=== PATIENT | female | born 1995 | race Two or more races ===

== ENCOUNTER → 2022-08-15 | Outpatient (CLI) | payer OTHER | LOC: M WHC 10:08 | PROVIDERS: ATTEND Obstetrics & Gynecology | DX: Z34.82 Encounter for supervision of other normal pregnancy, second trimester (principal); Z3A.20 20 weeks gestation of pregnancy ==

== ENCOUNTER 2022-09-03 18:57 | Outpatient (CLI) | payer OTHER ==
[~2022-09-03] VITALS: Ht 154.9 cm; Wt 49.3 kg
[2022-09-03 19:14] VITALS: BP 124/71
[2022-09-03] MEDS ORDERED: PRENMIS3 PO (19:15)
[2022-09-03] MEDS ORDERED: TUMS500C PO (19:15)
[2022-09-03 19:46] LABS: HEMATOCRIT 31.2 % (36.0-47.0); HEMOGLOBIN 10.3 g/dl (12.0-15.5); MEAN CORPUSCULAR HEMOGLOBIN 29.6 pg (27.0-33.0); MEAN CORPUSCULAR VOLUME 89.7 fl (80.0-96.0); PLATELET COUNT, AUTOMATED 298 10^3/uL (150-450); RED BLOOD COUNT 3.48 10^6/uL (4.00-5.40); WHITE BLOOD COUNT 10.4 10^3/uL (4.0-10.0)
[2022-09-03 20:15] LABS: INR 0.94; PROTHROMBIN TIME 12.8 SECONDS (12.5-14.5)
[2022-09-03 20:16] LABS: PARTIAL THROMBOPLASTIN TIME 25.9 SECONDS (24.8-34.2)
[2022-09-03] MEDS ORDERED: FLUCONAZOLE 50MG TABLET PO ONE (21:00)
[2022-09-03 21:13] VITALS: BP 117/58
[2022-09-03 22:49] LABS: GC DNA AMPLIFICATION NEGATIVE (NEGATIVE)
== END 2022-09-03 21:39 | disposition home or self-care (01) ==
LOC: M LDO 18:57
PROVIDERS: ATTEND Obstetrics & Gynecology
DX: O23.592 Infection of other part of genital tract in pregnancy, second trimester (principal); Z3A.23 23 weeks gestation of pregnancy; O26.892 Other specified pregnancy related conditions, second trimester; R10.2 Pelvic and perineal pain
CPT/HCPCS: 36415; 59025; 76815; 81001; 85027; 85384; 85610; 85730; 87810; 87850; G0463

== ENCOUNTER 2022-12-07 14:02 | Outpatient (CLI) | payer OTHER ==
[~2022-12-07 14:02] MED LIST: PRENMIS3 PO; TUMS500C PO
== END 2022-12-07 17:30 | disposition home or self-care (01) ==
LOC: M LDO 14:02
PROVIDERS: ATTEND Obstetrics & Gynecology
DX: O46.93 Antepartum hemorrhage, unspecified, third trimester (principal); Z3A.36 36 weeks gestation of pregnancy; O36.5930 Maternal care for other known or suspected poor fetal growth, third trimester, not applicable or unspecified; Z65.3 Problems related to other legal circumstances
CPT/HCPCS: 59025; 76816; 76820; G0463

== ENCOUNTER 2022-12-14 13:01 | Inpatient (IN) | payer OTHER ==
[~2022-12-14] VITALS: Ht 157.5 cm; Wt 53.1 kg
[2022-12-14] VITALS (28 sets, daily range): BP systolic 124–187; BP diastolic 65–112
[2022-12-14] MEDS ORDERED: HOME MED LIST COMPLETE! XX SCH (13:45)
[2022-12-14] MEDS ORDERED: LIDOCAINE 1% MDV 20ML VIAL INFIL PRN (14:15)
[2022-12-14] MEDS ORDERED: TRANEXAMIC ACID INJection 1,000 MG in NS 100 ML IV PRN (14:15)
[2022-12-14] MEDS ORDERED: CARBOPROST TROMETHAMINE 250 MCG/ML AMP IM PRN (14:15)
[2022-12-14] MEDS ORDERED: OXYTOCIN DRIP 30 UNITS in IV 1 EA IV PRN ×4 (14:15)
[2022-12-14] MEDS ORDERED: LR 1,000 ML IV SCH (14:15)
[2022-12-14] MEDS ORDERED: LACTATED RINGER'S 1000 ML IV STA (14:15)
[2022-12-14 15:05] LABS: HEMATOCRIT 31.2 % (36.0-47.0); HEMOGLOBIN 10.1 g/dl (12.0-15.5); MEAN CORPUSCULAR HEMOGLOBIN 26.8 pg (27.0-33.0); MEAN CORPUSCULAR HGB CONC 32.4 g/dl (32.0-36.5); MEAN CORPUSCULAR VOLUME 82.8 fl (80.0-96.0); PLATELET COUNT, AUTOMATED 240 10^3/uL (150-450); RED BLOOD COUNT 3.77 10^6/uL (4.00-5.40); WHITE BLOOD COUNT 11.3 10^3/uL (4.0-10.0)
[2022-12-14] MEDS ORDERED: miSOPROStol 50MCG 1/2 TABLET SL ONE (15:15)
[2022-12-14 15:36] LABS: AMPHETAMINES URINE REFLEX NEGATIVE (NEGATIVE); BARBITURATES URINE REFLEX NEGATIVE (NEGATIVE); BENZODIAZEPINES URINE REFLEX NEGATIVE (NEGATIVE); COCAINE METABOLITE URINE REFLE NEGATIVE (NEGATIVE); METHADONE URINE REFLEX NEGATIVE (NEGATIVE); OPIATES URINE REFLEX NEGATIVE (NEGATIVE); PHENCYCLIDINE URINE REFLEX NEGATIVE (NEGATIVE)
[2022-12-14 15:37] LABS: LDH LACTATE DEHYDROGENASE 232 U/L (120-246)
[2022-12-14 15:38] LABS: ALT/SGPT 14 U/L (7.0-40); AST/SGOT 23 U/L (<34); BILIRUBIN,TOTAL 0.5 MG/DL (0.3-1.2); CREATININE FOR GFR 0.67 MG/DL (0.55-1.30); GLOMERULAR FILTRATION RATE > 60.0 (>60)
[2022-12-14 16:56] LABS: CANNABINOIDS URINE REFLEX PENDING CONFIRMATION (NEGATIVE)
[2022-12-14] MEDS ORDERED: miSOPROStol 50MCG 1/2 TABLET PO SCH (18:55)
[2022-12-14] MEDS ORDERED: diphenhydrAMINE 50MG/ML VIAL IV PRN (21:40)
[2022-12-14] MEDS ORDERED: ePHEDrine SULFATE 25 MG/5 ML(5MG/ML) SYRINGE IVP PRN (21:40)
[2022-12-14] MEDS ORDERED: FENTANYL/ROPIVACAINE/NACL BAG 100 ML EPIDURAL SCH ×2 (21:40)
[2022-12-14] MEDS ORDERED: NALOXONE INJ 0.4MG/1ML VIAL IV PRN (21:40)
[2022-12-14] MEDS ORDERED: EPIDURAL/PCA KEYS XX PRN (21:40)
[2022-12-14] MEDS ORDERED: FENTANYL 2MCG/ML ROPIVACAINE 0.2% IN 0.9% NACL 100ML IVBAG As Ordered ONE (21:44)
[2022-12-14] MEDS: ONDANSETRON 4MG 2ML VIAL IV PRN (23:53)
[2022-12-15] VITALS (45 sets, daily range): BP systolic 107–183; BP diastolic 58–113; TEMP 98.1–98.4; O2SAT 100
[2022-12-15 02:32] LABS: CORD GAS ABE A -10.1; CORD GAS ABE V -9.9; CORD GAS HCO3 A 17.8 MMOL/L; CORD GAS HCO3 V 18.3 MMOL/L; CORD GAS O2 SAT A 69.6 %; CORD GAS O2 SAT V 41.6 %; CORD GAS PCO2 A 46.1 mmHg; CORD GAS PCO2 V 48.5 mmHg; CORD GAS PH A 7.205 UNITS; CORD GAS PH V 7.195 UNITS; CORD GAS PO2 A 32.7 mmHg; CORD GAS PO2 V 21.5 mmHg; CORD GAS SBC A 16.1 MMOL/L; CORD GAS SBC V 15.5 MMOL/L; CORD GAS TCO2 A 19.2 MMOL/L; CORD GAS TCO2 V 19.8 MMOL/L
[2022-12-15] MEDS ORDERED: DIBUCAINE 1% OINTMENT 30GM TOP PRN (02:40)
[2022-12-15] MEDS ORDERED: MOM 30ML SUSPENSION UDC PO PRN (02:40)
[2022-12-15] MEDS ORDERED: DOCUSATE SODIUM 100MG CAPSULE PO PRN (02:40)
[2022-12-15] MEDS ORDERED: ANUSOL HC CREAM 30GM TOP PRN (02:40)
[2022-12-15 03:27] LABS: BASO % 0.1 % (0.0-1.0); EOS # 0.1 10^3/uL (0.0-0.5); EOS % 0.8 % (0.0-3.0); HEMATOCRIT 29.6 % (36.0-47.0); HEMOGLOBIN 9.8 g/dl (12.0-15.5); LYMPH # 2.2 10^3/uL (1.5-5.0); LYMPH % 16.6 % (24.0-44.0); MEAN CORPUSCULAR HEMOGLOBIN 27.1 pg (27.0-33.0); MEAN CORPUSCULAR HGB CONC 33.1 g/dl (32.0-36.5); MEAN CORPUSCULAR VOLUME 81.8 fl (80.0-96.0); MONO # 0.9 10^3/uL (0.0-0.8); MONO % 6.3 % (2.0-8.0); NEUTROPHILS # 10.2 10^3/uL (1.5-8.5); NEUTROPHILS % 75.6 % (36.0-66.0); PLATELET COUNT, AUTOMATED 230 10^3/uL (150-450); RED BLOOD COUNT 3.62 10^6/uL (4.00-5.40); WHITE BLOOD COUNT 13.5 10^3/uL (4.0-10.0)
[2022-12-15 03:50] LABS: TOTAL PROTEIN,RANDOM URINE 33.2 MG/DL (0.0-14.0)
[2022-12-15 03:55] LABS: CREATININE,RANDOM URINE 26.7 MG/DL
[2022-12-15 03:56] LABS: ALBUMIN 2.4 G/DL (3.2-5.2); ALKALINE PHOSPHATASE 188 U/L (46-116); ALT/SGPT 13 U/L (7.0-40); AST/SGOT 23 U/L (<34); BILIRUBIN,TOTAL 0.4 MG/DL (0.3-1.2); BLOOD UREA NITROGEN 6 MG/DL (9-23); CARBON DIOXIDE LEVEL 19 MMOL/L (20-31); CHLORIDE LEVEL 110 MMOL/L (98-107); CREATININE FOR GFR 0.63 MG/DL (0.55-1.30); GLOMERULAR FILTRATION RATE > 60.0 (>60); GLUCOSE, FASTING 77 MG/DL (60-100); SODIUM LEVEL 136 MMOL/L (136-145); TOTAL PROTEIN 5.1 G/DL (5.7-8.2)
[2022-12-15] MEDS: ACETAMINOPHEN 500 MG TAB PO PRN (04:21)
[2022-12-15] MEDS: PRENATAL VITAMINS CHEWABLE TABLET PO SCH (10:04)
[2022-12-15] MEDS: IBUPROFEN 800 MG TAB PO PRN ×2 (11:52→18:59)
[2022-12-15] MEDS ORDERED: CALCIUM GLUCONATE 1,000 MG in D5W MINI-BAG PLUS 100 ML IV PRN (14:30)
[2022-12-15] MEDS ORDERED: LR 1,000 ML IV SCH (14:30)
[2022-12-15] MEDS ORDERED: NIFEdipine 10 MG CAP PO ONE (14:45)
[2022-12-15] MEDS: LABETALOL 200 MG TAB PO SCH ×2 (14:55→21:37)
[2022-12-15] MEDS ORDERED: MAG Sulf (L&D) 4 GM/100 ML 4 GM in IV 1 EA IV ONE (15:00)
[2022-12-15] MEDS ORDERED: MAG Sulf (OBGYN) 20GM/500ML 20,000 MG in IV 1 EA IV SCH (15:30)
[2022-12-16] VITALS (16 sets, daily range): BP systolic 116–172; BP diastolic 50–100; TEMP 98.3; O2SAT 98–100
[2022-12-16] MEDS: IBUPROFEN 800 MG TAB PO PRN (04:01)
[2022-12-16] MEDS: PRENATAL VITAMINS CHEWABLE TABLET PO SCH (08:53)
[2022-12-16] MEDS: LABETALOL 200 MG TAB PO SCH ×2 (08:54→18:20)
[2022-12-16] MEDS ORDERED: BOOSTRIX VACCINE (TETANUS/DIPHTH/ACEL. PERTUSSIS) 0.5ML SYR IM.IMMUN ONE (09:00)
[2022-12-16] MEDS: ACETAMINOPHEN 500 MG TAB PO PRN ×2 (09:37→22:00)
[2022-12-16] MEDS ORDERED: SLF 3 ML SYR IV PRN (09:50)
[2022-12-16] MEDS ORDERED: KETOROLAC 30 MG/ML 1ML VIAL IV SCH (10:00)
[2022-12-16] MEDS: KETOROLAC 30 MG/ML 1ML VIAL IV SCH ×2 (13:13→18:19)
[2022-12-16] MEDS: SLF 3 ML SYR IV SCH ×2 (18:21→22:00)
[2022-12-16] MEDS: ONDANSETRON 4MG 2ML VIAL IV PRN (22:00)
[2022-12-17] VITALS (7 sets, daily range): BP systolic 124–166; BP diastolic 70–88; O2SAT 98–100
[2022-12-17] MEDS: KETOROLAC 30 MG/ML 1ML VIAL IV SCH ×2 (01:42→05:55)
[2022-12-17] MEDS: LABETALOL 200 MG TAB PO SCH ×2 (05:50→18:21)
[2022-12-17] MEDS: SLF 3 ML SYR IV SCH ×3 (06:00→22:00)
[2022-12-17] MEDS ORDERED: MEASLES,MUMPS,RUBELLA VACCINE INJ (MMR-II) SC.IMMUN ONE (09:00)
[2022-12-17] MEDS: PRENATAL VITAMINS CHEWABLE TABLET PO SCH (09:19)
[2022-12-17] MEDS: ACETAMINOPHEN 500 MG TAB PO PRN ×2 (09:19→22:15)
[2022-12-18 02:00] VITALS: BP 150/84; O2SAT 99
[2022-12-18] MEDS: SLF 3 ML SYR IV SCH (05:41)
[2022-12-18 06:00] VITALS: BP 158/90; O2SAT 99
[2022-12-18] MEDS: LABETALOL 200 MG TAB PO SCH ×2 (06:13→18:02)
[2022-12-18] MEDS: ACETAMINOPHEN 500 MG TAB PO PRN ×3 (06:31→19:32)
[2022-12-18] MEDS: PRENATAL VITAMINS CHEWABLE TABLET PO SCH (08:56)
[2022-12-18 09:43] VITALS: BP 148/88; O2SAT 99
[2022-12-18 13:47] LABS: BASO % 0.1 % (0.0-1.0); EOS # 0.4 10^3/uL (0.0-0.5); EOS % 2.8 % (0.0-3.0); HEMATOCRIT 28.1 % (36.0-47.0); HEMOGLOBIN 9.2 g/dl (12.0-15.5); LYMPH # 0.9 10^3/uL (1.5-5.0); LYMPH % 6.3 % (24.0-44.0); MEAN CORPUSCULAR HEMOGLOBIN 27.2 pg (27.0-33.0); MEAN CORPUSCULAR HGB CONC 32.7 g/dl (32.0-36.5); MEAN CORPUSCULAR VOLUME 83.1 fl (80.0-96.0); MONO # 0.7 10^3/uL (0.0-0.8); MONO % 4.9 % (2.0-8.0); NEUTROPHILS # 12.4 10^3/uL (1.5-8.5); NEUTROPHILS % 85.3 % (36.0-66.0); PLATELET COUNT, AUTOMATED 264 10^3/uL (150-450); RED BLOOD COUNT 3.38 10^6/uL (4.00-5.40); WHITE BLOOD COUNT 14.5 10^3/uL (4.0-10.0)
[2022-12-18 14:00] VITALS: BP 135/70; O2SAT 98
[2022-12-18] MEDS ORDERED: GENTAMICIN IV SCH (16:00)
[2022-12-18] MEDS ORDERED: D5W IV SCH (16:00)
[2022-12-18] MEDS: CLINDAMYCIN 900 MG in IV 1 EA IV SCH ×2 (16:39→23:54)
[2022-12-18] MEDS ORDERED: diphenhydrAMINE 50MG/ML VIAL IV PRN (17:30)
[2022-12-18 18:00] VITALS: BP 141/78; O2SAT 98
[2022-12-18] MEDS: IBUPROFEN 600MG TAB PO PRN (20:34)
[2022-12-18 22:00] VITALS: BP 126/78; O2SAT 98
[2022-12-19 02:00] VITALS: BP 127/66; O2SAT 98
[2022-12-19 05:50] VITALS: BP 140/80; O2SAT 100
[2022-12-19 06:06] VITALS: BP 140/80
[2022-12-19] MEDS: LABETALOL 200 MG TAB PO SCH (06:06)
[2022-12-19] MEDS: CLINDAMYCIN 900 MG in IV 1 EA IV SCH (06:06)
[2022-12-19] MEDS: IBUPROFEN 600MG TAB PO PRN (06:07)
[2022-12-19] MEDS: PRENATAL VITAMINS CHEWABLE TABLET PO SCH (09:25)
[2022-12-19 10:00] VITALS: BP 124/64; O2SAT 100
[2022-12-21 10:08] LABS: Cannabinoid Positive (.); Carboxy THC Conf, MS, UR 100 ng/mL (Cutoff=10)
== END 2022-12-19 12:36 | disposition home or self-care (01) | DRG 806 ==
LOC: M LDI 13:01 → M OBS 12-15 07:55 → M LDI 12-15 15:21 → M OBS 12-16 10:25 → UNDODISIN 12-18 17:20
PROVIDERS: ADMIT Advanced Practice Midwife; ATTEND Obstetrics & Gynecology
PROC: 3E0P7GC Introduction of Other Therapeutic Substance into Female Reproductive, Via Natural or Artificial Opening (ICD-10-PCS; 2022-12-14)
PROC: 10E0XZZ Delivery of Products of Conception, External Approach (ICD-10-PCS; principal; 2022-12-15)
PROC: 0HQ9XZZ Repair Perineum Skin, External Approach (ICD-10-PCS; 2022-12-15)
DX: O36.5930 Maternal care for other known or suspected poor fetal growth, third trimester, not applicable or unspecified (principal); Z37.0 Single live birth; O86.12 Endometritis following delivery; O14.14 Severe pre-eclampsia complicating childbirth; Z3A.37 37 weeks gestation of pregnancy; O76 Abnormality in fetal heart rate and rhythm complicating labor and delivery; O70.0 First degree perineal laceration during delivery